=== PATIENT | male | born 1980 | race Hispanic/Latino ===

== ENCOUNTER 2023-10-14 06:06 | Day surgery (SDC) | payer OTHER, SELFPAY ==
[2023-10-14] VITALS (9 sets, daily range): BP systolic 103–135; BP diastolic 64–81
[2023-10-14] MEDS: TYLENOL 1000 MG PO (06:50)
[2023-10-14] MEDS: NORMOSOL-R 1000 IV (07:03)
== END 2023-10-14 11:20 | disposition home or self-care (01) ==
LOC: SDS 06:06
PROVIDERS: ATTENDING PHYSICIAN Surgery; FAMILY PHYSICIAN Physician Assistant Medical
DX: L72.0 Epidermal cyst (principal)
CPT/HCPCS: 11406; 12034; 88304